=== PATIENT | male | born 1960 | race American Indian/Alaskan Native ===

== ENCOUNTER 2017-08-14 09:15 | Day surgery (SDC) | payer OTHER ==
[2017-08-14 07:41] VITALS: BMI 27.5
[2017-08-14] MEDS ORDERED: LIDOCAINE HCL/PF 2% SDV 5ML VIAL ONE (10:16)
[2017-08-14] MEDS ORDERED: PROPOFOL 20 ML ONE ×2 (10:16)
[2017-08-14 10:52] VITALS: TEMP 97.9
[2017-08-14 12:33] VITALS: BP 122/61; PULSE 59
== END 2017-08-14 11:40 | disposition home or self-care (01) ==
LOC: JASU-ENDO 09:15
PROVIDERS: ATTEND Internal Medicine Gastroenterology
PROC: 0DJD8ZZ Inspection of Lower Intestinal Tract, Via Natural or Artificial Opening Endoscopic (ICD-10-PCS; principal; 2017-08-14 09:00)
DX: Z12.11 Encounter for screening for malignant neoplasm of colon (principal); K64.8 Other hemorrhoids; I10 Essential (primary) hypertension

== ENCOUNTER 2023-07-30 06:14 | Day surgery (SDC) | payer OTHER ==
[2023-07-20 14:28] VITALS: BMI 24.4
[2023-07-30] MEDS ORDERED: CEFAZOLIN SODIUM 2 GM in DEXTROSE 5%-WATER 100 ML IVPB ONE (06:58)
[2023-07-30] MEDS ORDERED: EPINEPHrine 1:1,000 1,000 MCG/ML ML ONE (07:06)
[2023-07-30] MEDS ORDERED: BUPIVACAINE HCL/PF 0.25% (2.5MG/ML) 10 ML VIAL ONE (07:06)
[2023-07-30] MEDS ORDERED: PROPOFOL 20 ML ONE (07:26)
[2023-07-30] MEDS ORDERED: SUCCINYLCHOLINE CHLORIDE 200 MG/10 ML SYRINGE ONE (07:26)
[2023-07-30] MEDS ORDERED: ROCURONIUM BROMIDE 50 MG/5 ML SYRINGE ONE (07:26)
[2023-07-30] MEDS ORDERED: NEOSTIGMINE METHYLSULFATE 0.5 MG/1 ML - 10 ML MDV ONE (08:31)
[2023-07-30] MEDS: BUPIVACAINE HCL/PF 0.25% (2.5MG/ML) 10 ML VIAL IJ ONE (08:33)
[2023-07-30] MEDS ORDERED: ACETAMINOPHEN INJECTION 100 ML IVPB ONE (08:52)
[2023-07-30] MEDS ORDERED: FENTANYL CITRATE/PF 50 MCG/ML VIAL ONE ×3 (08:52→09:30)
[2023-07-30] MEDS: ACETAMINOPHEN 1000 MG/100 ML BAG IVPB ONE (09:00)
[2023-07-30] MEDS ORDERED: ONDANSETRON 4 MG/2 ML VIAL ONE (09:30)
[2023-07-30] MEDS ORDERED: LACTATED RINGERS SOLUTION 1,000 ML IV SCH (09:30)
[2023-07-30] MEDS: ONDANSETRON 4 MG/2 ML VIAL IVPUSH PRN (09:34)
[2023-07-30 10:01] VITALS: RESP 17; TEMP 97.1
[2023-07-30] MEDS ORDERED: oxyCODONE HCL 5 MG TABLET ONE (10:03)
[2023-07-30] MEDS: oxyCODONE HCL 5 MG TABLET PO PRN (10:06)
[2023-07-30 10:27] VITALS: PULSE 66
[2023-07-30 10:43] VITALS: BP 124/70
== END 2023-07-30 11:20 | disposition home or self-care (01) ==
LOC: FASU 06:14
PROVIDERS: ATTEND Orthopaedic Surgery Sports Medicine
PROC: 0SBC4ZZ Excision of Right Knee Joint, Percutaneous Endoscopic Approach (ICD-10-PCS; principal; 2023-07-30 08:10)
DX: S83.241A Other tear of medial meniscus, current injury, right knee, initial encounter (principal); S83.281A Other tear of lateral meniscus, current injury, right knee, initial encounter; X58.XXXA Exposure to other specified factors, initial encounter; Y92.9 Unspecified place or not applicable; Y93.9 Activity, unspecified
CPT/HCPCS: 94760; J0131

== ENCOUNTER 2024-08-01 06:05 | Day surgery (SDC) | payer OTHER ==
[2024-07-30 14:45] VITALS: BMI 21.0
[2024-08-01] MEDS ORDERED: ACETAMINOPHEN 500 MG TABLET (FP) PO PRN (08:38)
[2024-08-01] MEDS: LIDOCAINE HCL 1% PRESERVATIVE FREE - 30ML VIAL IJ ONE ×2 (12:49)
[2024-08-01] MEDS: BUPIVACAINE HCL/PF 0.5% (5MG/ML) 10 ML VIAL IJ ONE ×3 (12:49)
[2024-08-01] MEDS: IOHEXOL 180 MG/1 ML ML IJ ONE ×2 (12:50)
[2024-08-01 13:24] VITALS: BP 119/72; PULSE 46; RESP 20; TEMP 97.3
== END 2024-08-01 13:15 | disposition home or self-care (01) ==
LOC: JASU-SURG 06:05
PROVIDERS: ATTEND Pain Medicine Pain Medicine
PROC: 3E0T3BZ Introduction of Anesthetic Agent into Peripheral Nerves and Plexi, Percutaneous Approach (ICD-10-PCS; principal; 2024-08-01 12:00)
DX: M47.812 Spondylosis without myelopathy or radiculopathy, cervical region (principal)
CPT/HCPCS: 76000-TC-FY

== ENCOUNTER 2024-08-28 05:09 | Day surgery (SDC) | payer OTHER ==
[2024-08-26 16:32] VITALS: BMI 21.4
[2024-08-28 08:45] VITALS: RESP 18; TEMP 97.8
[2024-08-28] MEDS ORDERED: ACETAMINOPHEN 500 MG TABLET (FP) PO PRN (08:49)
[2024-08-28 13:59] VITALS: BP 108/72; PULSE 55
== END 2024-08-28 10:45 | disposition home or self-care (01) ==
LOC: JASU-SURG 05:09
PROVIDERS: ATTEND Pain Medicine Pain Medicine
PROC: 3E0T3BZ Introduction of Anesthetic Agent into Peripheral Nerves and Plexi, Percutaneous Approach (ICD-10-PCS; principal; 2024-08-28 09:43)
DX: M47.812 Spondylosis without myelopathy or radiculopathy, cervical region (principal)
CPT/HCPCS: 76000-TC-FY